=== PATIENT | male | born 1985 | race Caucasian/White ===

== ENCOUNTER 2020-05-23 23:35 | Emergency (ER) | payer SELFPAY ==
[~2020-05-23] VITALS: Ht 185 cm; Wt 131.0 kg
--- NOTE | 2020-05-23 23:44 | ED Chest Pain ---
General Stated Complaint: CHEST PAIN / SOB Source: patient Exam Limitations: no limitations History of Present Illness Date Seen by Provider: May 23, 2020 Time Seen by Provider: 23:40 Initial Comments Mr. Hernandez is a 33-year-old male who presents to the emergency department today with a chief complaint of epigastric/low sternal chest discomfort. Onset about 30 minutes prior to arrival. Patient states that he was just sitting on his couch eating when he had a sudden onset of burning pain, sharp stabbing pain. Patient states that the pain seems to radiate into his left chest to make his left arm feel "numb". He feels a little short of breath. He is not nauseated. He has never had pain like this before. Patient has no past medical history of significance. He is a smoker. He has unknown family history. No recent illnesses such as fevers, chills cough or congestion. No other GI or complaints. Nothing seems to make the pain any better nothing makes it any worse. He appears to be in moderate to significant distress regarding the pain. Palpation of the epigastrium significantly reproduces his pain. All other review of systems reviewed and negative except as stated. Timing/Duration: 1/2 hour Severity/Quality: severe, aching, burning, sharp Location: epigastric Radiation: no radiation Activities at Onset: none Prior CP/Workup: no prior chest pain, no prior cardiac workup ASA po CHAIR CANER: Yes NTG SL CHAIR CANER: No Associated Symptoms: abdominal pain (Epigastric pain) Allergies and Home Medications Allergies Coded Allergies: No Known Drug Allergies (Unverified , 05/23/20) Patient Home Medication List Home Medication List Reviewed: Yes Review of Systems Review of Systems Constitutional: see HPI EENTM: No Symptoms Reported Respiratory: SOA at Rest Cardiovascular: Chest Pain Gastrointestinal: Abdominal Pain Genitourinary: No Symptoms Reported Musculoskeletal: no symptoms reported Skin: no symptoms reported All Other Systems Reviewed Negative Unless Noted: Yes Physical Exam Vital Signs Vital Signs - First Documented 05/23/20 05/24/20 23:44 01:44 Temp 36.5 Pulse 110 Resp 22 B/P (MAP) 148/99 (115) Pulse Ox 99 O2 Delivery Room Air Capillary Refill : Height, Weight, BMI Height: '" Weight: lbs. oz. kg; BMI Method: General Appearance: WD/WN, Anxious, Mild Distress HEENT: PERRL/EOMI Respiratory: Lungs Clear, Normal Breath Sounds, No Accessory Muscle Use, No Respiratory Distress Cardiovascular: Regular Rate, Rhythm Gastrointestinal: Soft, Tenderness (Significant tenderness in the epigastric region) Extremity: Normal Capillary Refill, Normal Inspection, Normal Range of Motion, Non Tender, No Calf Tenderness Neurologic/Psychiatric: Alert, Oriented x3, No Motor/Sensory Deficits, Normal Mood/Affect Skin: Normal Color, Warm/Dry Progress/Results/Core Measures Results/Orders Lab Results Laboratory Tests Test 05/23/20 23:47 Range/Units White Blood Count 15.6 H 4.3-11.0 10^3/uL Red Blood Count 4.97 4.30-5.52 10^6/uL Hemoglobin 14.4 13.3-17.7 g/dL Hematocrit 46 40-54 % Mean Corpuscular Volume 93 80-99 fL Mean Corpuscular Hemoglobin 29 25-34 pg Mean Corpuscular Hemoglobin Concent 31 L 32-36 g/dL Red Cell Distribution Width 14.3 10.0-14.5 % Platelet Count 272 130-400 10^3/uL Mean Platelet Volume 9.7 9.0-12.2 fL Immature Granulocyte % (Auto) 0 % Neutrophils (%) (Auto) 79 H 42-75 % Lymphocytes (%) (Auto) 14 12-44 % Monocytes (%) (Auto) 5 0-12 % Eosinophils (%) (Auto) 1 0-10 % Basophils (%) (Auto) 0 0-10 % Neutrophils # (Auto) 12.4 H 1.8-7.8 10^3/uL Lymphocytes # (Auto) 2.1 1.0-4.0 10^3/uL Monocytes # (Auto) 0.8 0.0-1.0 10^3/uL Eosinophils # (Auto) 0.2 0.0-0.3 10^3/uL Basophils # (Auto) 0.1 0.0-0.1 10^3/uL Immature Granulocyte # (Auto) 0.0 0.0-0.1 10^3/uL Neutrophils % (Manual) 79 % Lymphocytes % (Manual) 15 % Monocytes % (Manual) 2 % Band Neutrophils 4 % Blood Morphology Comment NORMAL Sodium Level 143 135-145 MMOL/L Potassium Level 3.9 3.6-5.0 MMOL/L Chloride Level 106 98-107 MMOL/L Carbon Dioxide Level 23 21-32 MMOL/L Anion Gap 14 5-14 MMOL/L Blood Urea Nitrogen 12 7-18 MG/DL Creatinine 1.21 0.60-1.30 MG/DL Estimat Glomerular Filtration Rate > 60 BUN/Creatinine Ratio 10 Glucose Level 116 H 70-105 MG/DL Calcium Level 8.5 8.5-10.1 MG/DL Total Bilirubin 0.4 0.1-1.0 MG/DL Direct Bilirubin 0.1 0.0-0.3 MG/DL Indirect Bilirubin 0.3 MG/DL Aspartate Amino Transf (AST/SGOT) 20 5-34 U/L Alanine Aminotransferase (ALT/SGPT) 30 0-55 U/L Alkaline Phosphatase 73 40-136 U/L Total Creatine Kinase 189 30-200 U/L Creatine Kinase MB 1.7 <6.6 NG/ML Troponin I < 0.028 <0.028 NG/ML Total Protein 7.6 6.4-8.2 GM/DL Albumin 4.3 3.2-4.5 GM/DL Lipase 32 8-78 U/L My Orders Orders - EMANUEL POLO MD Sucralfate Tablet (Carafate Tablet) (05/23/20 23:45) Antacid Suspension (Mylanta Suspension (05/23/20 23:45) Lidocaine 2% Viscous 15 Ml (Xylocaine Vi (05/23/20 23:45) Pantoprazole Injection (Protonix Injecti (05/23/20 23:45) Ekg Tracing (05/23/20 23:46) Chest 1 View, Ap/Pa Only (05/23/20 23:46) Cbc With Automated Diff (05/23/20 23:46) Basic Metabolic Panel (05/23/20 23:46) Creatine Kinase Mb (05/23/20 23:46) Creatine Kinase (05/23/20 23:46) Troponin I (05/23/20 23:46) Manual Differential (05/23/20 23:47) Fentanyl Inj (Sublimaze Injection) (05/24/20 00:15) Hydromorphone Injection (Dilaudid Inject (05/24/20 00:45) Ct Abdomen/Pelvis Wo (05/24/20 00:37) Lipase (05/23/20 23:47) Liver Panel (05/23/20 23:47) Dicyclomine Injection (Bentyl Injection) (05/24/20 01:44) Rx-Ondansetron Po (Rx-Zofran Po) (05/24/20 02:16) Ketorolac Injection (Toradol Injection) (05/24/20 02:30) Medications Given in ED Current Medications Medications Dose Ordered Sig/Rudolph Route Start Time Stop Time Status Last Admin Dose Admin Al Hydrox/Mg Hydrox/Simethicone 30 ml ONCE ONCE PO 05/23/20 23:45 05/23/20 23:52 DC 05/23/20 23:53 30 ML Fentanyl Citrate 50 mcg ONCE ONCE IVP 05/24/20 00:15 05/24/20 00:16 DC 05/24/20 00:07 50 MCG Hydromorphone HCl 1 mg ONCE ONCE IV 05/24/20 00:45 05/24/20 00:46 DC 05/24/20 00:40 1 MG Ketorolac Tromethamine 30 mg ONCE ONCE IVP 05/24/20 02:30 05/24/20 02:31 DC 05/24/20 02:31 30 MG Lidocaine HCl 5 ml ONCE ONCE PO 05/23/20 23:45 05/23/20 23:52 DC 05/23/20 23:53 5 ML Pantoprazole 40 mg ONCE ONCE IV 05/23/20 23:45 05/23/20 23:52 DC 05/23/20 23:53 40 MG Sucralfate 1 gm ONCE ONCE PO 05/23/20 23:45 05/23/20 23:52 DC 05/23/20 23:53 1 GM Vital Signs/I&O 05/23/20 05/24/20 05/24/20 23:44 01:44 03:22 Temp 36.5 36.5 Pulse 110 104 104 Resp 22 18 18 B/P (MAP) 148/99 (115) 123/84 (97) 123/84 (97) Pulse Ox 99 99 O2 Delivery Room Air Room Air Progress Progress Note : Time: 02:25 Progress Note still feeling a bit bad; meds have made him sleepy and thirsty, but still having pain at about a "5 or a 6". rocking sitting up on the side of the bed. will try a little toradol and see if that improves things as we wait for the bentyl to kick in as well. Initial ECG Impression Date: May 23, 2020 Initial ECG Impression Time: 23:40 Initial ECG Rate: 115 Initial ECG Rhythm: S.Tach Initial ECG Intervals: Normal Initial ECG Impression: Nonspecific Changes Initial ECG Comparisson: No Previous ECG Available Diagnostic Imaging Diagonstic Imaging: CT Plain Films/CT/US/NM/MRI: abdomen, pelvis Comments CT Abdomen and pelvis: no acute pathology noted, per [facility] Departure Impression Primary Impression: Abdominal pain Qualified Codes: R10.13 - Epigastric pain Disposition: 01 HOME, SELF-CARE Condition: Stable Departure-Patient Inst. Decision time for Depature: 02:12 Referrals: [facility]/K Patient Instructions: Severe Abdominal Pain, Adult (DC) Add. Discharge Instructions: [place] diet for the next 12-24 hours. Take the zofran every 6-8 hours as needed for nausea. Ibuprofen/tylenol as needed for pain. Return to the Emergency Department for any return of or worsening pain, fever, vomiting or any other emergent and concerning symptoms. EMANUEL POLO MD May 23, 2020 23:44
[2020-05-23] MEDS ORDERED: ANTACID SUSP 30 ML UDC (MYLANTA) PO ONE (23:45)
[2020-05-23] MEDS ORDERED: LIDOCAINE 2% VISCOUS 15 ML UDC PO ONE (23:45)
[2020-05-23] MEDS ORDERED: PANTOPRAZOLE 40 MG (PROTONIX) VIAL IV ONE (23:45)
[2020-05-23] MEDS ORDERED: SUCRALFATE 1 GM (CARAFATE) TAB PO ONE (23:45)
[2020-05-23 23:57] LABS: BASOPHILS # (AUTO) 0.1 10^3/uL (0.0-0.1); BASOPHILS % (AUTO) 0 % (0-10); EOSINOPHILS # (AUTO) 0.2 10^3/uL (0.0-0.3); EOSINOPHILS % (AUTO) 1 % (0-10); HEMATOCRIT 46 % (40-54); HEMOGLOBIN 14.4 g/dL (13.3-17.7); LYMPHOCYTES # (AUTO) 2.1 10^3/uL (1.0-4.0); LYMPHOCYTES % (AUTO) 14 % (12-44); MEAN CORPUSCULAR HEMOGLOBIN 29 pg (25-34); MEAN CORPUSCULAR HGB CONC 31 g/dL (32-36); MEAN CORPUSCULAR VOLUME 93 fL (80-99); MEAN PLATELET VOLUME 9.7 fL (9.0-12.2); MONOCYTES # (AUTO) 0.8 10^3/uL (0.0-1.0); MONOCYTES % (AUTO) 5 % (0-12); NEUTROPHILS # (AUTO) 12.4 10^3/uL (1.8-7.8); NEUTROPHILS % (AUTO) 79 % (42-75); PLATELET COUNT 272 10^3/uL (130-400); WHITE BLOOD COUNT 15.6 10^3/uL (4.3-11.0)
[2020-05-24 00:10] LABS: CHLORIDE 106 MMOL/L (98-107); POTASSIUM 3.9 MMOL/L (3.6-5.0); SODIUM 143 MMOL/L (135-145)
[2020-05-24 00:11] LABS: CALCIUM 8.5 MG/DL (8.5-10.1); GLUCOSE 116 MG/DL (70-105)
[2020-05-24 00:13] LABS: CARBON DIOXIDE 23 MMOL/L (21-32)
[2020-05-24 00:15] LABS: CREATININE SERUM 1.21 MG/DL (0.60-1.30); GFR ESTIMATED > 60
[2020-05-24] MEDS ORDERED: fentaNYL INJ 100 MCG/2 ML AMP IVP ONE (00:15)
[2020-05-24 00:16] LABS: BUN/CREATININE RATIO 10
[2020-05-24 00:18] LABS: CREATINE KINASE 189 U/L (30-200)
[2020-05-24 00:24] LABS: CREATINE KINASE MB 1.7 NG/ML (<6.6)
[2020-05-24 00:33] LABS: BAND NEUTROPHILS 4 %; LYMPHOCYTES % (MANUAL) 15 %; MONOCYTES % (MANUAL) 2 %; NEUTROPHILS % (MANUAL) 79 %; RBC MORPH NORMAL
[2020-05-24] MEDS ORDERED: HYDROmorphone 2 MG/ML VIAL (DILAUDID) IV ONE (00:45)
[2020-05-24 01:10] LABS: ALBUMIN 4.3 GM/DL (3.2-4.5)
[2020-05-24 01:13] LABS: TOTAL PROTEIN 7.6 GM/DL (6.4-8.2)
[2020-05-24 01:14] LABS: BILIRUBIN,TOTAL 0.4 MG/DL (0.1-1.0)
[2020-05-24 01:15] LABS: ALKALINE PHOSPHATASE 73 U/L (40-136)
[2020-05-24 01:18] LABS: BILIRUBIN,DIRECT 0.1 MG/DL (0.0-0.3); BILIRUBIN,INDIRECT 0.3 MG/DL
[2020-05-24 01:19] LABS: ALANINE AMINOTRANSFERASE 30 U/L (0-55); LIPASE 32 U/L (8-78)
[2020-05-24] MEDS ORDERED: DICYCLOMINE 10 MG/ML (BENTYL) 2 ML AMP IM STA (01:44)
[2020-05-24] MEDS ORDERED: RX-ONDANSETRON 4 MG ODT (ZOFRAN) PPK #4 PO STA (02:16)
[2020-05-24] MEDS ORDERED: KETOROLAC 30 MG/ML VIAL IVP ONE (02:30)
[2020-05-24 03:22] VITALS: BP 123/84
--- NOTE | 2020-05-24 07:28 | Diagnostic Imaging Report ---
PROCEDURE: CT abdomen and pelvis without contrast. TECHNIQUE: Multiple contiguous axial images were obtained through the abdomen and pelvis without the use of intravenous contrast. Auto Exposure Controls were utilized during the CT exam to meet ALARA standards for radiation dose reduction. INDICATION: Severe upper abdominal pain. COMPARISON: None. FINDINGS: Diffuse fatty infiltration of the liver with some regions of focal sparing. Gallbladder is contracted. The pancreas, spleen, adrenals, right kidney, collecting systems, bladder and appendix are negative on this noncontrast exam. 1.6 cm ill-defined low-attenuation region in the lower pole of the left kidney. No free intraperitoneal air or fluid. No lymphadenopathy. No evidence of bowel obstruction. No acute osseous findings. IMPRESSION: 1. No acute CT findings in the abdomen or pelvis on this noncontrast exam. 2. Hepatic steatosis. 3. Ill-defined indeterminate low-attenuation region in the lower pole of the left kidney measuring up to 1.6 cm. This could be better evaluated with ultrasound or dedicated multiphase contrast-enhanced CT. Dictated by: Dictated on workstation # [id number]
--- NOTE | 2020-05-24 07:36 | Diagnostic Imaging Report ---
EXAM: CHEST 1 VIEW, AP/PA ONLY INDICATION: Chest pain. Epigastric pain. COMPARISON: None. FINDINGS: Normal heart size and central pulmonary vascularity. No focal pulmonary opacity, pleural effusion or pneumothorax. No acute osseous findings. IMPRESSION: No acute cardiopulmonary findings. Dictated by: Dictated on workstation # [id number]
== END 2020-05-24 03:23 | disposition home or self-care (01) ==
LOC: ER 23:38
DX: R10.13 Epigastric pain (principal)
CPT/HCPCS: 36415; 71045; 74176; 80048; 80076; 82550; 82553; 83690; 84484; 85007; 85027; 93005

== ENCOUNTER 2021-07-25 23:13 | Emergency (ER) | payer SELFPAY ==
[~2021-07-25] VITALS: Ht 185 cm; Wt 124.0 kg
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
[2021-07-26 01:16] LABS: BILIRUBIN,URINE NEGATIVE (NEGATIVE); CLARITY,URINE CLEAR; COLOR,URINE YELLOW; GLUCOSE, URINE (UA) NEGATIVE (NEGATIVE); KETONES,URINE NEGATIVE (NEGATIVE); LEUKOCYTE ESTERASE ,URINE NEGATIVE (NEGATIVE); NITRITE,URINE NEGATIVE (NEGATIVE); PROTEIN,URINE NEGATIVE (NEGATIVE)
[2021-07-26 01:19] LABS: BASOPHILS # (AUTO) 0.1 10^3/uL (0.0-0.1); BASOPHILS % (AUTO) 1 % (0-10); EOSINOPHILS # (AUTO) 0.2 10^3/uL (0.0-0.3); EOSINOPHILS % (AUTO) 3 % (0-10); HEMATOCRIT 43 % (40-54); HEMOGLOBIN 13.7 g/dL (13.3-17.7); LYMPHOCYTES # (AUTO) 2.7 10^3/uL (1.0-4.0); LYMPHOCYTES % (AUTO) 33 % (12-44); MEAN CORPUSCULAR HEMOGLOBIN 30 pg (25-34); MEAN CORPUSCULAR HGB CONC 32 g/dL (32-36); MEAN CORPUSCULAR VOLUME 92 fL (80-99); MEAN PLATELET VOLUME 9.7 fL (9.0-12.2); MONOCYTES # (AUTO) 0.4 10^3/uL (0.0-1.0); MONOCYTES % (AUTO) 5 % (0-12); NEUTROPHILS # (AUTO) 4.7 10^3/uL (1.8-7.8); NEUTROPHILS % (AUTO) 58 % (42-75); PLATELET COUNT 224 10^3/uL (130-400); WHITE BLOOD COUNT 8.1 10^3/uL (4.3-11.0)
[2021-07-26 01:22] LABS: ALBUMIN 3.8 GM/DL (3.2-4.5); CHLORIDE 107 MMOL/L (98-107); POTASSIUM 3.8 MMOL/L (3.6-5.0); SODIUM 142 MMOL/L (135-145)
[2021-07-26 01:24] LABS: CALCIUM 8.4 MG/DL (8.5-10.1)
[2021-07-26 01:25] LABS: GLUCOSE 95 MG/DL (70-105); TOTAL PROTEIN 6.9 GM/DL (6.4-8.2)
[2021-07-26 01:26] LABS: CARBON DIOXIDE 22 MMOL/L (21-32)
[2021-07-26 01:27] LABS: BILIRUBIN,TOTAL 0.3 MG/DL (0.1-1.0)
[2021-07-26] MEDS ORDERED: NAPR500T8 PO (01:27)
[2021-07-26] MEDS ORDERED: CYCL10TA25 PO (01:27)
[2021-07-26 01:28] LABS: ALKALINE PHOSPHATASE 65 U/L (40-136)
[2021-07-26 01:29] LABS: CREATININE SERUM 1.02 MG/DL (0.60-1.30); GFR ESTIMATED 98
[2021-07-26 01:30] LABS: BUN/CREATININE RATIO 11
[2021-07-26 01:31] LABS: AMPHETAMINE SCREEN, URINE NEGATIVE (NEGATIVE); BACTERIA,URINE NEGATIVE /HPF; BARBITURATE SCREEN URINE NEGATIVE (NEGATIVE); BENZODIAZEPINES SCREEN URINE NEGATIVE (NEGATIVE); CANNABINOID SCREEN, URINE POSITIVE (NEGATIVE); COCAINE SCREEN URINE NEGATIVE (NEGATIVE); METHADONE STAT NEGATIVE (NEGATIVE); OPIATE SCREEN URINE NEGATIVE (NEGATIVE); OXYCODONE STAT NEGATIVE (NEGATIVE); PROPOXYPHENE STAT NEGATIVE (NEGATIVE); SQUAMOUS EPITHELIAL CELL,UR RARE /HPF; TRICYCLIC ANTIDEPRESSANTS SCRE NEGATIVE (NEGATIVE); WBC,URINE 0-2 /HPF
[2021-07-26 01:32] LABS: ALANINE AMINOTRANSFERASE 25 U/L (0-55); CREATINE KINASE 202 U/L (30-200); LIPASE 34 U/L (8-78)
[2021-07-26 01:39] LABS: CREATINE KINASE MB 2.3 NG/ML (<6.6)
[2021-07-26 01:53] VITALS: BP 136/85
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
== END 2021-07-26 01:55 | disposition home or self-care (01) ==
LOC: EDUNIT# 23:13 → ER 23:17
DX: S16.1XXA Strain of muscle, fascia and tendon at neck level, initial encounter (principal); S20.212A Contusion of left front wall of thorax, initial encounter; S09.90XA Unspecified injury of head, initial encounter; F19.90 Other psychoactive substance use, unspecified, uncomplicated; F17.210 Nicotine dependence, cigarettes, uncomplicated; Z28.310 Unvaccinated for COVID-19; V49.40XA Driver injured in collision with unspecified motor vehicles in traffic accident, initial encounter; Y92.410 Unspecified street and highway as the place of occurrence of the external cause
CPT/HCPCS: 70450; 71045; 71250; 72125; 74176; 80053; 80306; 81000; 82550; 82553; 83690; 83874; 85025; 99283; G0480; 36415; 80320